=== PATIENT | male | born 1985 ===

== ENCOUNTER 2018-01-30 14:45 | Emergency (ER) | payer OTHER ==
[~2018-01-30] VITALS: Ht 172.7 cm; Wt 68.0 kg
--- NOTE | 2018-01-30 15:13 | Emergency Room Report ---
History of Present Illness General Chief Complaint: Pain Source: Patient (Bebeto Toussaint) Present Illness HPI 32-year-old male patient presents ER complaining of right rib pain for the past 2 days. States that he was moving some furniture when he hit his right ribs on the furniture. Reports pain with deep inspirations. Denies shortness of breath. Reports has been using Salonpas and taking NSAIDs with mild relief of symptoms. Reports last night was very painful so he decided to come to the ER today. denies other acute symptoms. (Bebeto Toussaint) Allergies: Coded Allergies: No Known Allergies (Unverified , 01/30/18) Patient History Past Medical History: see triage record Reviewed Nursing Documentation: PMH: Agreed; PSxH: Agreed (Bebeto Toussaint) Nursing Documentation-PMH Past Medical History: No Stated History (Bebeto Toussaint) Review of Systems All Other Systems: negative except mentioned in HPI (Bebeto Toussaint) Physical Exam Vital Signs Date Time Temp Pulse Resp B/P (MAP) Pulse Ox O2 Delivery O2 Flow Rate FiO2 01/30/18 14:51 98.2 85 14 135/82 99 Room Air 98.2 Sp02 EP Interpretation: reviewed, normal General Appearance: well appearing, no apparent distress, alert, GCS 15, non- toxic Head: normocephalic, atraumatic Eyes: bilateral eye normal inspection, bilateral eye PERRL ENT: hearing grossly normal, normal pharynx, no angioedema, normal voice, uvula midline, moist mucus membranes Neck: full range of motion Respiratory: lungs clear, normal breath sounds, no rhonchi, no respiratory distress, no accessory muscle use, no wheezing, speaking full sentences, other - no flail chest, no absent breath sounds, no tracheal deviation Cardiovascular #1: regular rate, rhythm, no edema Musculoskeletal: back normal, digits/nails normal, gait/station normal, normal range of motion, other - no bony rib deformity, no ecchymosis, no erythema, tender - right sided anterior ribs Psychiatric: mood/affect normal Skin: no rash (Bebeto Toussaint) Medical Decision Making PA Attestation Dr. Dorado is my supervising Physician whom patient management has been discussed with. (Bebeto Toussaint) Diagnostic Impression: Primary Impression: Rib contusion ER Course Pt. presents to the ED c/o rib pain. Multiple differentials considered. no absent breath sounds, no tracheal deviation, no flail chest, low suspicion for pneumothorax. Vital signs: are WNL, pt. is afebrile ER COURSE: Provided with pain medication in ER. On PE, right side ribs are TTP; reports TTP. rib pain likely musculoskeletal, does not require cardiac workup at this time. Denies recent illness, will treat with NSAIDS. Informed patient to take NSAIDs as needed for pain symptoms. An X-ray of the left ribs was ordered, results show no fracture per the preliminary reading. An X-ray the chest shows no acute disease or pneumothorax per the preliminary reading. Informed patient likely rib contusion causing pain symptoms. Patient instructed on rest, ice,and heat. Patient instructed to avoid strenuous exercise that may exacerbate symptoms. Followup with primary care provider for medical clearance to return to activities. Discuss referral to ortho/pain management/PT as needed. Discuss further imaging with MRI/CT as needed. DISCHARGE: Rx provided for Ibuprofen Rx provided for lidocaine At this time pt is stable for d/c to home. Patient is resting comfortably, in no acute distress, nontoxic appearing, talking without difficulty, smiling and giving high-fives. Patient to take medications as instructed Will provide with patient care instructions and any necessary prescriptions. Care plan and follow-up instructions provided. Patient instructed to follow-up with primary care provider in 3 - 5 days. Patient questions asked and answered. Patient reports understanding and agreement to treatment plan. ER precautions given. Patient instructed to return to ER immediately for any new or worsening of symptoms including but not limited to increasing SOB, persistent fever, chest pain, intractable vomiting. - Please note that this Emergency Department Report was dictated using [employer] board press operator technology software, occasionally this can lead to erroneous entry secondary to interpretation by the dictation equipment. (Bebeto Toussaint) Chest X-Ray Diagnostic Results Chest X-Ray Diagnostic Results : Chest X-Ray Ordered: Yes # of Views/Limited/Complete: 1 View Indication: Chest Pain EP Interpretation: Yes PA Xray: Interpretation reviewed, by supervising MD, and agrees with findings. Interpretation: no consolidation, no effusion, no pneumothorax, no acute cardiopulmonary disease Impression: No acute disease PA Scribe Text Ernesto Toussaint PA-C (Bebeto Toussaint P.AAmelie) Chest X-Ray Diagnostic Results : Electronically Signed by: Scribe documentation reviewed by me and is accurate, Vini Dorado MD (Vini Dorado M.D.) Other X-Ray Diagnostic Results Other X-Ray Diagnostic Results : X-Ray ordered: right ribs # of Views/Limited Vs Complete: 2 View Indication: Pain EP Interpretation: Yes PA Xray: Interpretation reviewed, by supervising MD, and agrees with findings. Interpretation: no dislocation, no soft tissue swelling, no fractures Impression: No acute disease PA Scribe Text Ernesto Toussaint PA-C (Bebeto Toussaint P.A.) Other X-Ray Diagnostic Results : Electronically Signed by: Scribe documentation reviewed by me and is accurate, Vini Dorado MD (Vini Dorado M.D.) Last Vital Signs Date Time Temp Pulse Resp B/P (MAP) Pulse Ox O2 Delivery O2 Flow Rate FiO2 01/30/18 14:51 98.2 85 14 135/82 99 Room Air 98.2 Status: improved (Bebeto Toussaint) Disposition: HOME, SELF-CARE Condition: Stable Scripts Ibuprofen* (MOTRIN*) 800 Mg Tablet 800 MG ORAL Q8H, #30 TAB 0 Refills Prov: Bebeto Toussaint 01/30/18 Lidocaine (Lidocaine) 1 Each Adh..patch 5 % TP DAILY for 7 Days, #7 PATCH Prov: Bebeto Toussaint.A. 01/30/18 Patient Instructions: Rib Contusion Additional Instructions: Patient instructed to follow up with primary care provider 3-5 and discuss further referral and imaging at that time. Patient instructed on rest, ice and heat. Take medications as directed. Patient questions asked and answered. ER precautions given, patient instructed to return to ER immediately for any new or worsening of symptoms. Bebeto Toussaint Jan 30, 2018 15:13 Vini Dorado M.D. Jan 31, 2018 18:00
[2018-01-30] MEDS ORDERED: Ketorolac 30mg Inj IM ONE (15:15)
[2018-01-30] MEDS ORDERED: IBUPROFEN800 MG ORAL (15:50)
[2018-01-30] MEDS ORDERED: LIDOCAINE700 M1 TP (15:50)
[2018-01-30 15:54] VITALS: BP 135/82
--- NOTE | 2018-01-30 16:24 | Diagnostic Imaging Report ---
Indication: Chest pain Technique: One view of the chest, 2 views of the right ribs Comparison: none Findings: Lungs and pleural spaces are clear. Heart size is normal. Right rib radiographs demonstrate no evidence of fracture. No pneumothorax Impression: No acute process
== END 2018-01-30 15:54 | disposition home or self-care (01) ==
LOC: EMR 15:10
DX: S20.211A Contusion of right front wall of thorax, initial encounter (principal); W22.03XA Walked into furniture, initial encounter; Y93.89 Activity, other specified; Y92.9 Unspecified place or not applicable; F17.200 Nicotine dependence, unspecified, uncomplicated
CPT/HCPCS: 71045; 71100; 96372; 99283; J1885